=== PATIENT | male | born 1965 | race African-American/Black ===

== ENCOUNTER 2021-06-04 14:18 | Emergency (ER) | payer MEDICAID ==
[~2021-06-04] VITALS: Ht 182.9 cm; Wt 80.0 kg
[2021-06-04 18:16] VITALS: BP 112/83
== END 2021-06-04 18:39 | disposition home or self-care (01) ==
LOC: ER 14:18
DX: K70.9 Alcoholic liver disease, unspecified (principal); R18.8 Other ascites; F12.10 Cannabis abuse, uncomplicated; I50.9 Heart failure, unspecified
CPT/HCPCS: 10021; 87075; 99285

== ENCOUNTER 2021-06-20 20:10 | Emergency (ER) | payer OTHER, MEDICAID ==
[~2021-06-20] VITALS: Ht 185.4 cm; Wt 91.0 kg
[2021-06-20] MEDS ORDERED: FUROSEMIDE 40MG TABLET PO ONE (21:00)
[2021-06-20 22:20] LABS: HEMATOCRIT. 33.9 % (42.0-52.0); HEMOGLOBIN. 11.1 g/dL (14.0-18.0); MEAN CORPUSCULAR HEMOGLOBIN 30.8 pg (28.0-32.0); MEAN PLATELET VOLUME 7.6 fl (7.4-10.4); PLATELET 389 x1000/uL (130-400); RED BLOOD CELL COUNT 3.61 mill/uL (4.7-6.1); RED CELL DISTRIBUTION WIDTH 16.8 % (11.6-14.6)
[2021-06-20 22:24] LABS: CHLORIDE 106 mEq/L (98-107)
[2021-06-20 22:28] LABS: ETHANOL BLOOD < 10 mg/dL
[2021-06-20 22:54] LABS: PLATELET ESTIMATE NORMAL
[2021-06-20] MEDS ORDERED: LIDOCAINE HCL 1% 20ML VIAL (Pyxis) INJ INFIL STA (23:16)
[2021-06-21 00:05] VITALS: BP 132/74
== END 2021-06-21 00:05 | disposition home or self-care (01) ==
LOC: ER 20:22
DX: K70.30 Alcoholic cirrhosis of liver without ascites (principal); R60.1 Generalized edema; I50.9 Heart failure, unspecified
CPT/HCPCS: 36415; 49083; 71045; 76870; 80053; 80320; 83880; 84484; 85025; 93005; 93976; 99285; J3490; G0480